=== PATIENT | male | born 1945 | race Caucasian/White ===

== ENCOUNTER → 2016-09-26 | Outpatient (CLI) | payer OTHER | LOC: FIMAGING 10:44 | PROVIDERS: ATTEND Family Medicine | DX: R42 Dizziness and giddiness (principal); I25.10 Atherosclerotic heart disease of native coronary artery without angina pectoris ==

== ENCOUNTER → 2017-10-01 | Outpatient (CLI) | payer OTHER | LOC: BHFA 09:30 | PROVIDERS: ATTEND Internal Medicine Cardiovascular Disease | DX: Z01.810 Encounter for preprocedural cardiovascular examination (principal); R53.83 Other fatigue; R55 Syncope and collapse; R94.31 Abnormal electrocardiogram [ECG] [EKG] ==

== ENCOUNTER → 2017-10-14 | Outpatient (CLI) | payer OTHER | LOC: BHFA 09:30 | PROVIDERS: ATTEND Internal Medicine Cardiovascular Disease | DX: Z01.810 Encounter for preprocedural cardiovascular examination (principal); R55 Syncope and collapse; R53.83 Other fatigue; R94.31 Abnormal electrocardiogram [ECG] [EKG] | CPT/HCPCS: 78452; 93017; A9500; J2785 ==

== ENCOUNTER → 2017-10-31 | Outpatient (CLI) | payer OTHER | LOC: BHFA 10:00 | PROVIDERS: ATTEND Internal Medicine Cardiovascular Disease | DX: R55 Syncope and collapse (principal); I49.8 Other specified cardiac arrhythmias; R00.1 Bradycardia, unspecified ==

== ENCOUNTER 2017-11-04 08:54 | Observation (INO) | payer OTHER ==
[2017-11-04] MEDS ORDERED: ceFAZolin 2 GM/DEXTROSE 100 ML IV ONE (08:58)
[2017-11-04] MEDS ORDERED: diphenhydrAMINE 25 MG CAP PO ONE (08:58)
[2017-11-04] MEDS ORDERED: DIAZEPAM 5 MG TAB PO ONE (08:58)
[2017-11-04] MEDS ORDERED: NS 1,000 ML IV ONE (08:58)
[2017-11-04] MEDS ORDERED: BACITRACIN IRRIGATION/NS 50,000 UNITS/1,000 ML BTL IRR ONE (08:58)
--- NOTE | 2017-11-04 09:22 | CPEKG ---
Heart Rate: 51 RR Interval: 1176 P-R Interval: 200 QRSD Interval: 98 QT Interval: 444 QTC Interval: 409 P [place]: 32 QRS [place]: 22 T Wave [place]: 4 EKG Severity - NORMAL ECG - EKG Impression: SINUS RHYTHM Electronically Signed By: Charlene Guevara 04-Nov-2017 11:36:50
[2017-11-04 09:42] LABS: PLATELET COUNT 228 10^3/uL (150-400)
--- NOTE | 2017-11-04 09:48 | PDPROPOC ---
Sedation Plan of Care Sedation Plan of Care: vital signs stable, mental status noted, patient educated of risks, benefits, alternatives, patient can tolerate sedation ASA Classification: ASA 2 Planned drugs: fentanyl, midazolam Mallampati Score: Class 1 Mallampati Reference Image: Patient passed 3-3-2 rule?: Yes
--- NOTE | 2017-11-04 09:49 | PDGENHP ---
History & Physical Chief Complaint: presyncope Relevant Physical Exam: [id number] Cardiorespiratory Assessment: Bradycardia with presyncope, for dual-chamber pacemaker implantation. He understands that these episodes have not been documented on monitor and there may be another etiology of presyncope. I have also advised him and his that he should not drive for 1 month after device implant.
[2017-11-04 09:52] LABS: INR 1.06 (0.83-1.16)
[2017-11-04] MEDS ORDERED: MIDAZOLAM 2 MG/2 ML VIAL ONE (11:40)
[2017-11-04] MEDS ORDERED: LIDOCAINE 1% 300 MG/30 ML SDV ONE (11:40)
[2017-11-04] MEDS ORDERED: BUPIVACAINE 0.5% 30 ML SDV ONE (11:40)
[2017-11-04] MEDS ORDERED: IOPAMIDOL (ISOVUE-300) 50 ML VIAL ONE (11:40)
[2017-11-04] MEDS ORDERED: fentaNYL 100 MCG/2 ML INJ ONE (11:40)
--- NOTE | 2017-11-04 12:49 | EPPROC ---
Electrophysiology Procedure Note: PROCEDURE PERFORMED: 1. Implantation of an A/V Pacemaker 2. Subclavian vein angiography 3. Fluoroscopy INDICATION: Presyncope Bradycardia PROCEDURE NOTE: Patient presented to the cardiac catheterization laboratory in a fasting, post absorptive state . CCL RN administered sedation. The left infraclavicular area was prepped and draped in the usual sterile fashion. Lidocaine plus bupivacaine was used for local anesthesia. Left subclavian venography was performed by injection of iodinated contrast into the left antecubital vein. This was done to assure patency of the vein and also to assess for any anatomical aberrations. Using a combination of blunt and sharp dissection and electrocautery, the dissection was carried down to the prepectoral fascia. A pocket was made in this anatomical plane. All bleeding was controlled with electrocautery. The pocket was packed with gauze soaked in antibiotic solution. Fluoroscopy was utilized during the entire procedure for venous access and placement of the leads. Using a direct stick technique the left extrathoracic axillary vein was accessed with 2 sticks using the modified Seldinger technique. Placement of the guidewires into the venous system was confirmed by low-pressure blood return and also by visualizing the guidewires advancing into the inferior vena cava. A purse string suture was applied around the guidewires. Two #9 [place] sheaths were advanced under fluoroscopic guidance over the guidewire. MRI compatible device and MRI compliant 9Fr leads were placed. An active fixation ventricular lead was advanced into the right ventricular apex and screwed in place. An active fixation atrial lead was advanced into the right atrial appendage and screwed in place. The peel away sheaths were removed. Pacing thresholds, sensing parameters and lead impedances were measured. There was no diaphragmatic stimulation at maximum output. The leads were sutured to the prepectoral fascia with 3 nonabsorbable sutures each. The pocket was again inspected for any bleeding. The leads were attached to the pacemaker securely. The pacemaker was inserted into the pocket and secured in place with a nonabsorbable suture. Fluoroscopy was performed in ALVAREZ and JUS planes to verify right-sided placement of the leads. Also fluoroscopy of the pacemaker pocket was performed. The pacemaker pocket was closed in 3 layers with absorbable monocryl sutures and zaira. Appropriate dressing was applied. The patient left the cardiac catheterization laboratory in stable condition. Serial Numbers: 1. Device: SJM Assurity MRI SN [id number] 2. Atrial Lead: SJM Tendril 46 cm SN [id number] 3. Ventricular Lead: SJM Tendril 52 cm [id number] Stimulation Thresholds & Impedance Measurements: 1. Atrial Lead P 1.7 mV 663 ohm 0.7 V 0.5 ms 2. Ventricular Lead R 5.2 mV 683 ohm 0.8 V 0.5 ms Leonardo Pacing Parameters 1. Pacing mode: DDDR 2. Lower rate: 60ppm 3. Upper tracking rate: 130 ppm 4. Upper sensor rate: 130 ppm Patient Problems: Problems Problem Status Onset Bradycardia Acute Pre-syncope Acute
--- NOTE | 2017-11-04 13:12 | CPEKG ---
Heart Rate: 63 RR Interval: 952 P-R Interval: 212 QRSD Interval: 100 QT Interval: 412 QTC Interval: 422 P [place]: 13 QRS [place]: -12 T Wave [place]: -4 EKG Severity - ABNORMAL ECG - EKG Impression: ATRIAL-PACED COMPLEXES EKG Impression: BORDERLINE T ABNORMALITIES, INFERIOR LEADS Electronically Signed By: Charlene Guevara 04-Nov-2017 17:11:26
[2017-11-04] MEDS ORDERED: NAPROXEN SODIUM 220 MG TAB PO PRN (16:40)
[2017-11-05 04:06] VITALS: BP 132/80
[2017-11-05 04:46] LABS: PLATELET COUNT 212 10^3/uL (150-400)
[2017-11-05] MEDS ORDERED: ASPIRIN 81 MG CHEWABLE TAB PO SCH (09:00)
--- NOTE | 2017-11-05 09:13 | CPEKG ---
Heart Rate: 63 RR Interval: 952 P-R Interval: 180 QRSD Interval: 96 QT Interval: 396 QTC Interval: 406 P [place]: 51 QRS [place]: -24 T Wave [place]: 55 EKG Severity - ABNORMAL ECG - EKG Impression: ATRIAL-PACED COMPLEXES EKG Impression: PROBABLE LEFT ATRIAL ABNORMALITY EKG Impression: BORDERLINE LEFT AXIS DEVIATION Electronically Signed By: Charlene Guevara 05-Nov-2017 11:55:37
--- NOTE | 2017-11-05 12:35 | GDS ---
[f rep st] DISCHARGE SUMMARY ADMISSION DIAGNOSES: 1. Presyncope. 2. Episodes of junctional rhythm noted off recent Holter monitoring with pauses up to 3.8 seconds. DISCHARGE DIAGNOSIS: Symptomatic bradycardia with noted episodes of junctional rhythm with sinus west ses up to 3.8 seconds. Status post permanent pacemaker implantation, [employer] device with a [employer] atrial and ventricular leads. PROCEDURES PERFORMED DURING HOSPITALIZATION: 1. Electrocardiogram. 2. Permanent pacemaker implantation with [employer] generator and [employer] right atrial and right vent ricular leads. 3. Subclavian venogram. 4. Chest x-ray. 5. Pacemaker interrogation. BRIEF HISTORY: Please see H and P. The patient is a 72-year-old male, reporting episodes for lighth eadedness and presyncope. On a recent Holter monitoring, it was noted that he was having episodes of junctional rhythm and sinus pauses up to 3.8 seconds. At night it was noted that he could have hear t rates down to 20 beats per minute. He was sent to Dr. Kerns for evaluation. Upon evaluation, he was felt to be an appropriate candidate to undergo pacemaker implantation. HOSPITAL COURSE: Patient was admitted through CVC, prepped for procedure, and taken to electrophysio logy lab. There, Dr. Kerns successfully did venogram, followed by successfully implantation of a [employer] pacemaker with right atrial and ventricular leads. No apparent complications, patient was transf erred back to the CVC, and ultimately to the PCU for overnight observation. The patient reports duri ng his stay on PCU he has been up and walking the unit with no chest pain, shortness of breath, or li ghtheadedness. Continuous cardiac monitoring showing A paced intrinsic ventricular respon se. He reports no chest pressure, pain or shortness of breath. PHYSICAL EXAMINATION: GENERAL APPEARANCE: Today, well groomed, male. He is alert and rochelle ented to person, place, time, situation. VITAL SIGNS: Blood pressure of 132/80, heart rate of 68, r espirations are 16, saturation 95% on room air. HEENT: Head is normocephalic. Lips and tongue are pink and moist with no signs of cyanosis. Conjunctivae pink. NECK: Trachea is midline, +2 carotid pulses bilateral, no auscultated bruits, no jugular vein distention. LUNGS: Clear to auscultation, no rhonchi, rales or wheezes, no accessory muscle use, no intercostal muscle retraction noted. CARDI AC: Regular rate, regular rhythm, S1, S2, no S3, S4, gallops, rubs or murmurs noted. ABDOMEN: Soft , nontender, bowel sounds x4 quadrants. No organomegaly. No palpable masses. SKIN: [place], warm, dr y, no cyanosis, no clubbing, no peripheral edema. VASCULAR: +2 carotids bilateral, +2 radials bilat eral, +1 dorsal pedal and posterior tibial pulses bilateral. Pacemaker insertion site, left anterior chest just distal to clavicle incision intact with zaira. Dressing changes done at this time, no redness, swelling, drainage, ecchymosis or hematoma. LABORATORY STUDIES: Laboratory studies drawn today show WBC of 6.63, hemoglobin of 14.4, hematocrit 43.9, platelet count of 212. Sodium 140, potassium 4.7, chloride 108, CO2 of 22, BUN 25, creatinine 0.9, glucose 83, calcium 9.1. STUDIES: Venogram and electrophysiology procedure as mentioned above, a.m. chest x-ray showing no ac [place] cardiopulmonary process, no delayed pneumothorax, no signs of heart failure. Electrocardiogram d one this morning showing atrial paced rhythm, with intrinsic ventricular response, left axis deviatio n with no significant ST or T-wave abnormalities. Device check done by [employer] labor service representative this morning showing device functioning within normal li mits. DISCHARGE DISPOSITION: Patient will be discharged home in stable condition. He is under activity re strictions of not lifting more than 10 pounds with the left arm for the next 6 weeks, not lifting abo ve shoulder height. DISCHARGE MEDICATIONS: Please see discharge medication reconciliation sheet. DISCHARGE INSTRUCTIONS: Post pacemaker implantation discharge instructions went over with the patien t, including for monitoring for signs of infection, bleeding precautions, activity restrictions, and bathing precautions. The patient has a followup device and wound check scheduled for next week and a followup appointment with Dr. Kerns in 1 month. At the time of discharge, patient and verbalized understanding of all instructions and have no questions or concerns. They have been told that if an y problems or concerns post pacemaker implantation to call our office or return to the hospital. Total time spent on discharge greater than 30 minutes. /[id number]/MODL
--- NOTE | 2017-11-05 13:32 | ASMTCMCOM ---
CM Note CM Note Notes: Chart reviewed for discharge planning, Patient s/p planned PPM insertion. No needs identified. Has been medically cleared for discharge to home. CM available should needs arise. Plan: DC to home independently. Date Signed: 11/05/2017 12:02 PM Electronically Signed By:Kamilah Plascencia RN
--- NOTE | 2017-11-05 13:33 | ASMTLACE ---
LACE Length of stay for Answers: Less than 1 day current admission Comorbidities - select Answers: Coronary Artery Disease all that apply Opioid dependence / Chronic pain Other Notes: Pre-diabetic # of Emergency department Answers: 0 visits in the last 6 months Score: 7 Date Signed: 11/05/2017 12:02 PM Electronically Signed By:Kamilah Plascencia RN
== END 2017-11-05 12:44 | disposition home or self-care (01) ==
LOC: FCATH 08:54 → F2W 12:50
PROVIDERS: ADMIT Internal Medicine Cardiovascular Disease; ATTEND Internal Medicine Cardiovascular Disease
PROC: 02H63JZ Insertion of Pacemaker Lead into Right Atrium, Percutaneous Approach (ICD-10-PCS; principal; 2017-11-04)
PROC: 0JH606Z Insertion of Pacemaker, Dual Chamber into Chest Subcutaneous Tissue and Fascia, Open Approach (ICD-10-PCS; principal; 2017-11-04)
PROC: 02HK3JZ Insertion of Pacemaker Lead into Right Ventricle, Percutaneous Approach (ICD-10-PCS; principal; 2017-11-04)
DX: I49.5 Sick sinus syndrome (principal); I49.8 Other specified cardiac arrhythmias; E78.5 Hyperlipidemia, unspecified
CPT/HCPCS: 33208; 71045; 71046; 93005; C1785; C1898; J0690; J2250; J3010; Q9967